=== PATIENT | male | born 1950 | race Caucasian/White ===

== ENCOUNTER → 2022-03-08 | Outpatient (CLI) | payer OTHER ==
[2022-03-08 12:39] LABS: BASOPHILS ABSOLUTE AUTO 0.08 K/mm3 (0.00-0.23); BASOPHILS PERCENT AUTO 1 % (0-2); EOSINOPHILS ABSOLUTE AUTO 0.27 K/mm3 (0.00-0.68); EOSINOPHILS PERCENT AUTO 4 % (0-6); Hematocrit 47.9 % (37.0-53.0); Hemoglobin 15.1 g/dL (13.5-17.5); IMMATURE GRAN ABSOLUTE AUTO 0.03 K/mm3 (0.00-0.10); IMMATURE GRAN PERCENT AUTO 0 % (0-1); LYMPHOCYTES ABSOLUTE AUTO 1.69 K/mm3 (0.84-5.20); LYMPHOCYTES PERCENT AUTO 23 % (21-46); MONOCYTES ABSOLUTE AUTO 0.72 K/mm3 (0.16-1.47); MONOCYTES PERCENT AUTO 10 % (4-13); Mean Corpuscular HGB Conc 31.5 g/dL (31.5-36.5); Mean Corpuscular Volume 86 fL (80-100); NEUTROPHILS ABSOLUTE AUTO 4.66 K/mm3 (1.96-9.15); NEUTROPHILS PERCENT AUTO 63 % (41-73); Platelet Count 319 K/mm3 (150-400); RDW Coefficient Variation 15.5 % (11.7-14.2); RDW Standard Deviation 47.9 fL (35.1-46.3); White Blood Cell Count 7.45 K/mm3 (4.00-11.30)
== END | disposition home or self-care (01) ==
LOC: LAB SHORT 12:05 → LAB 12:05
PROVIDERS: Internal Medicine Hematology & Oncology
DX: C64.9 Malignant neoplasm of unspecified kidney, except renal pelvis (principal)
CPT/HCPCS: 36415; 85025

== ENCOUNTER 2022-09-06 13:02 | Inpatient (IN) | payer OTHER ==
[~2022-09-06] VITALS: Ht 160 cm; Wt 50.0 kg
[2022-09-06 13:33] LABS: Bicarbonate Venous 19.9 mmol/L (24.0-30.0); PCO2 Venous 51.6 mmHg (38-42)
[2022-09-06 13:34] LABS: pH Blood Venous 7.25 (7.34-7.37)
[2022-09-06 13:42] LABS: BASOPHILS ABSOLUTE AUTO 0.05 K/mm3 (0.00-0.23); BASOPHILS PERCENT AUTO 0 % (0-2); EOSINOPHILS PERCENT AUTO 0 % (0-6); Hematocrit 48.8 % (37.0-53.0); Hemoglobin 15.5 g/dL (13.5-17.5); IMMATURE GRAN ABSOLUTE AUTO 0.07 K/mm3 (0.00-0.10); IMMATURE GRAN PERCENT AUTO 0 % (0-1); LYMPHOCYTES ABSOLUTE AUTO 0.36 K/mm3 (0.84-5.20); LYMPHOCYTES PERCENT AUTO 2 % (21-46); MONOCYTES ABSOLUTE AUTO 1.01 K/mm3 (0.16-1.47); MONOCYTES PERCENT AUTO 7 % (4-13); Mean Corpuscular HGB 28.2 pg (26.0-34.0); Mean Corpuscular HGB Conc 31.8 g/dL (31.5-36.5); Mean Corpuscular Volume 89 fL (80-100); Mean Platelet Volume 10.2 fL (9.1-12.4); NEUTROPHILS ABSOLUTE AUTO 14.07 K/mm3 (1.96-9.15); NEUTROPHILS PERCENT AUTO 91 % (41-73); Platelet Count 181 K/mm3 (150-400); RDW Coefficient Variation 14.4 % (11.7-14.2); RDW Standard Deviation 46.5 fL (35.1-46.3); White Blood Cell Count 15.56 K/mm3 (4.00-11.30)
[2022-09-06 13:56] LABS: Albumin, Blood 3.3 g/dL (3.4-5.0); Albumin/Globulin Ratio 0.8 (0.8-1.8); Bilirubin, Total 0.4 mg/dL (0.1-1.0); Bun/Creatinine Ratio 28.3 (12.0-20.0); Calcium, Blood 8.5 mg/dL (8.5-10.1); Creatinine, Blood 0.88 mg/dL (0.60-1.20); Globulin, Blood 4.4 g/dL (2.2-4.0); Potassium, Blood 4.5 mmol/L (3.5-5.5); Total Protein, Blood 7.7 g/dL (6.4-8.2)
[2022-09-06 15:24] LABS: Influenza A, PCR POSITIVE (NEGATIVE); Influenza B, PCR NEGATIVE (NEGATIVE); Resp Syncytial Virus, PCR NEGATIVE (NEGATIVE); SARS-Cov-2 (COVID-19) PCR, MMC NEGATIVE (NEGATIVE)
--- NOTE | 2022-09-06 18:26 | NUR ---
CARE ASSUMPTION/SHIFT SUMMARY: PATIENT ARRIVED BY JAYANT FROM ED. PATIENT MOVED TO PCU BED WITH 4 STAFF ASSIST. DEXTROSE RUNNING PER EMAR. POWERGLIDE INSERTED. RAYGOZA PLACED AND UA SENT. RT RECOMMENDS BIPAP AT NIGHT - PATIENT DID NOT TOLERATE FOR LONG IN ED. PATIENT HAS CROUPY COUGH. PATIENT'S SKIN IS FRAGILE AND COCCYX IS REDDENED. HR IN LOW 100S, OTHER VSS ON 3L NC. PATIENT RESTING NOW. BED LOW WITH CALL LIGHT IN REACH. WILL MONITOR UNTIL REPORT TO NOC RN.
[2022-09-06 18:36] LABS: Source, Urine Clean Catch
[2022-09-06 18:44] LABS: Appearance, Urine Clear (Clear); Bilirubin, Urine Neg (Neg); Blood, Urine 4+ (Neg); Color, Urine Yellow (P-Yellow); Glucose Qualitative, Urine Neg (Neg); Ketones, Urine Neg (Neg); Leukocyte Esterase, Urine Neg (Neg); Nitrite, Urine Neg (Neg); Protein, Urine 3+ (Neg); Specific Gravity, Urine 1.025 (1.003-1.022); Urobilinogen, Urine NORM (Normal)
[2022-09-06 18:56] LABS: Amorphous Light (0-Heavy); Bacteria Few /hpf; Squamous Epithelial Cells Rare /hpf (Few); White Blood Cells, Urine 0-2 /hpf (0-5)
--- NOTE | 2022-09-06 19:49 | NUR ---
Assumed care at approximately 1910. Report received from james RN. Pt in bed, on via NC at 3 L/min. Pt alert and oriented, no acute needs. Will continue to monitor.
[2022-09-07 03:38] LABS: pH Blood Venous 7.36 (7.34-7.37)
[2022-09-07 03:54] LABS: BASOPHILS ABSOLUTE AUTO 0.04 K/mm3 (0.00-0.23); BASOPHILS PERCENT AUTO 0 % (0-2); EOSINOPHILS PERCENT AUTO 0 % (0-6); Hematocrit 45.5 % (37.0-53.0); Hemoglobin 14.9 g/dL (13.5-17.5); IMMATURE GRAN ABSOLUTE AUTO 0.04 K/mm3 (0.00-0.10); IMMATURE GRAN PERCENT AUTO 0 % (0-1); LYMPHOCYTES ABSOLUTE AUTO 0.36 K/mm3 (0.84-5.20); LYMPHOCYTES PERCENT AUTO 3 % (21-46); MONOCYTES ABSOLUTE AUTO 0.31 K/mm3 (0.16-1.47); MONOCYTES PERCENT AUTO 2 % (4-13); Mean Corpuscular HGB Conc 32.7 g/dL (31.5-36.5); Mean Corpuscular Volume 86 fL (80-100); Mean Platelet Volume 9.8 fL (9.1-12.4); NEUTROPHILS ABSOLUTE AUTO 12.49 K/mm3 (1.96-9.15); NEUTROPHILS PERCENT AUTO 94 % (41-73); Platelet Count 153 K/mm3 (150-400); RDW Coefficient Variation 14.3 % (11.7-14.2); RDW Standard Deviation 44.8 fL (35.1-46.3); Red Blood Cell Count 5.32 M/mm3 (4.30-5.90); White Blood Cell Count 13.24 K/mm3 (4.00-11.30)
[2022-09-07 04:16] LABS: Albumin, Blood 2.8 g/dL (3.4-5.0); Anion Gap 6 mmol/L (6-16); Blood Urea Nitrogen 35 mg/dL (8-24); Bun/Creatinine Ratio 44.8 (12.0-20.0); CO2, Blood 29 mmol/L (21-32); Calcium, Blood 8.3 mg/dL (8.5-10.1); Chloride, Blood 100 mmol/L (98-108); Creatinine, Blood 0.78 mg/dL (0.60-1.20); Glomerular Filtration Rate 94 (60-); Glucose, Blood 132 mg/dL (70-99); Phosphorus, Blood 2.4 mg/dL (2.5-4.9); Potassium, Blood 4.5 mmol/L (3.5-5.5); Sodium, Blood 135 mmol/L (136-145)
--- NOTE | 2022-09-07 06:13 | NUR ---
Shift summary. Pt slept in bed throughout shift. Pt attempted to use BiPAP but unable to tolerate. On 02 via NC at 3 L/min, sats above 93%. Troponin levels sid to 233, down to 230 last check, physician aware. VS stable, no acute events overnight. See assessment for further details. Will continue to monitor and report off to dayshift RN.
--- NOTE | 2022-09-07 10:56 | NUR ---
CARE ASSUMPTION: PATIENT VSS ON 3L NC. PATIENT REPORTS A "RESTFUL NIGHT" AND THAT HE IS FEELING BETTER TODAY. LUNGS DIM T/O. PATIENT SPUTTERS WHEN DRINKING THIN LIQUIDS - SPEECH EVAL ENTERED. RAYGOZA DRAINING TO GRAVITY. POWERGLIDE DRAWS AND FLUSHES. PATIENT CANNOT REMEMBER 'S PHONE NUMBER AND HAS BEEN UNABLE TO GET THROUGH THE NUMBER ON RECORD. PATIENT TO TRANSFER TO [facility]LO[facility] WITH TELE. BED LOW WITH CALL LIGHT IN REACH.
--- NOTE | 2022-09-07 12:00 | NUR ---
PT ARRIVED TO UNIT FROM PCU 8 1X TRANSFER TO BED, PT REQUESTING WIFES PHONE NUMBER SO HE CAN CALL AND LET HER KNOW
--- NOTE | 2022-09-07 17:35 | NUR ---
SHIFT SUMMARY PT A&OX3-4 APPEARS MILDLY CONFUSED @ TIMES AND FIXATED ON WIFES SAFETY SINCE ARRIVAL TO UNIT. UNABLE TO PROVIDE CURRENT PHONE NUMBER. PCU NURSE CONTACTED AND SHE REPORTS THE SAME BEHAVIOR. PT STATES IF WE DO NOT CALL IN FOR A WELFARE CHECK HE PLANS TO LEAVE AMA. WELFARE CHECK CALLED IN BY THIS RN. TOLERATING PO INTAKE WELL. TELE IN PLACE. 3L NC. DROPLET PRECAUTION IN PLACE. VSS.
--- NOTE | 2022-09-07 20:34 | NUR ---
patient is very anxious about not being able to get ahold of , states if he does not hear anything by 10 am 09/08/22 that he is checking out and going home. Will mention to the charge nurses.
--- NOTE | 2022-09-08 05:24 | NUR ---
SHIFT SUMMARY NO OVERNIGHT EVENTS. DENIES ANY PAIN/SOB/ ANY S/S OF DISTRESS. PT STILL ON 3LO2, DRY COUGH. CONTINUES IV ABX AND STERIODS. PT ORIENTED X4, FORGETFUL. PT CONTINOUSLY EXPRESSING HIS CONCERN FOR HIS , WILL PASS ON TO DAY SHIFT TO FOLLOW UP. REMOVED RAYGOZA CATHETER, PT VOIDING IN URINAL. PT ABLE TO MAKE NEEDS KNOWN. WILL CONTINUE TO MONITOR
[2022-09-08 05:51] LABS: Hemoglobin 14.6 g/dL (13.5-17.5); Mean Corpuscular HGB 28.1 pg (26.0-34.0); Mean Corpuscular HGB Conc 32.4 g/dL (31.5-36.5); Mean Corpuscular Volume 87 fL (80-100); Mean Platelet Volume 10.9 fL (9.1-12.4); Platelet Count 193 K/mm3 (150-400); RDW Coefficient Variation 14.3 % (11.7-14.2); RDW Standard Deviation 45.7 fL (35.1-46.3); Red Blood Cell Count 5.19 M/mm3 (4.30-5.90); White Blood Cell Count 16.67 K/mm3 (4.00-11.30)
[2022-09-08 06:11] LABS: Bun/Creatinine Ratio 45.2 (12.0-20.0); Calcium, Blood 8.3 mg/dL (8.5-10.1); Creatinine, Blood 1.04 mg/dL (0.60-1.20)
[2022-09-08] MEDS ORDERED: IPRAT-ALBUT 0.5-3 ML INH (11:01)
[2022-09-08] MEDS ORDERED: OSEL75CA PO (11:01)
[2022-09-08] MEDS ORDERED: VITAMIN D5000 UNIT PO (11:02)
[2022-09-08] MEDS ORDERED: PRED20 PO (11:04)
--- NOTE | 2022-09-08 13:16 | NUR ---
Spoke with Primary RN Davina prior to Pt visit and discussed case. Pt being D/C as Pt was reporting to leave AMA. Waiting on D/C orders. Pt resting in bed and denies pain at this time. Pt reports his spouse is at home and is not feeling well. Pt reports tolerating his treatment for his cancer well. He reports no concerns at home. Ended visit to allow Pt to rest. Palliative Care will remain available.
== END 2022-09-08 16:00 | disposition home or self-care (01) | DRG 193 ==
LOC: ER 13:02 → PCU 15:49 → MEDS 15:49 → PCU 17:31 → MEDS 09-07 11:10
PROVIDERS: Emergency Medicine; Student in an Organized Health Care Education/Training Program; ADMIT Internal Medicine
PROC: 5A09357 Assistance with Respiratory Ventilation, Less than 24 Consecutive Hours, Continuous Positive Airway Pressure (ICD-10-PCS; principal; 2022-09-06)
DX: J10.1 Influenza due to other identified influenza virus with other respiratory manifestations (principal); E43 Unspecified severe protein-calorie malnutrition; I21.A1 Myocardial infarction type 2; J96.01 Acute respiratory failure with hypoxia; J96.02 Acute respiratory failure with hypercapnia; C79.51 Secondary malignant neoplasm of bone; C64.9 Malignant neoplasm of unspecified kidney, except renal pelvis; E87.1 Hypo-osmolality and hyponatremia; Z20.822 Contact with and (suspected) exposure to COVID-19; J43.9 Emphysema, unspecified; F17.210 Nicotine dependence, cigarettes, uncomplicated; M81.0 Age-related osteoporosis without current pathological fracture; M40.204 Unspecified kyphosis, thoracic region; T38.0X5A Adverse effect of glucocorticoids and synthetic analogues, initial encounter; R73.9 Hyperglycemia, unspecified; Z68.22 Body mass index [BMI] 22.0-22.9, adult
CPT/HCPCS: 0241U; 36415; 71045; 80048; 80053; 80069; 81001; 82803; 83605; 83880; 84145; 84484; 85025; 85027; 87040; 92526; 92610; 93005; 93010; 94640; 94644; 94660; 94664; 94760; 94761; 94762; 96365; 96366; 96368; 96375; 99285-25; A9270; C1751; J0696; J1650; J2930; J3475; J7060

== ENCOUNTER 2022-09-12 11:14 | Inpatient (IN) | payer OTHER ==
[~2022-09-12 11:14] MED LIST: IPRAT-ALBUT 0.5-3 ML INH; OSEL75CA PO; PRED20 PO; Vitamin D1000 UNI1 PO
[2022-09-15] MEDS ORDERED: FINA5 PO (00:32)
[2022-09-15] MEDS ORDERED: ATOR10 PO (00:32)
[2022-09-15] MEDS ORDERED: AMLO10 PO (00:33)
[2022-09-15] MEDS ORDERED: ZESTRIL40 M2 PO (00:33)
[2022-09-15] MEDS ORDERED: OXYC10TA19 PO (00:34)
[2022-09-15] MEDS ORDERED: ALBU90OI INH (00:34)
[2022-09-15] MEDS ORDERED: STIOLTO RESPIMAT4 G1 INH (00:35)
[2022-09-15] MEDS ORDERED: INLYTA1 MG PO (00:37)
[2022-09-15] MEDS ORDERED: IPRAT-ALBUT 0.5-3 ML INH (00:38)
[2022-09-18] MEDS ORDERED: BUSP5 PO (08:28)
[2022-09-18] MEDS ORDERED: MIRALAX17 GM PO (08:28)
[2022-09-18] MEDS ORDERED: MIRT15 PO (08:28)
[2022-09-18] MEDS ORDERED: GUAI600T33 PO (08:28)
== END 2022-09-18 10:25 | disposition hospice, home (50) | DRG 193 ==
DX: J10.00 Influenza due to other identified influenza virus with unspecified type of pneumonia (principal); E43 Unspecified severe protein-calorie malnutrition; J96.01 Acute respiratory failure with hypoxia; J96.02 Acute respiratory failure with hypercapnia; Z68.1 Body mass index [BMI] 19.9 or less, adult; R64 Cachexia; C79.51 Secondary malignant neoplasm of bone; Z51.5 Encounter for palliative care; Z66 Do not resuscitate; J40 Bronchitis, not specified as acute or chronic; I10 Essential (primary) hypertension; J43.9 Emphysema, unspecified; N40.0 Benign prostatic hyperplasia without lower urinary tract symptoms; F32.A Depression, unspecified; Z20.822 Contact with and (suspected) exposure to COVID-19; F17.210 Nicotine dependence, cigarettes, uncomplicated; E78.5 Hyperlipidemia, unspecified; Z90.5 Acquired absence of kidney; Z79.899 Other long term (current) drug therapy; Z85.528 Personal history of other malignant neoplasm of kidney